=== PATIENT | male | born 1970 | race Caucasian/White ===

== ENCOUNTER 2017-01-12 12:04 | Emergency (ER) | payer OTHER | END 2017-01-12 12:54 | disposition home or self-care (01) | LOC: ER 12:04 | DX: M25.522 Pain in left elbow (principal); I10 Essential (primary) hypertension; Z86.14 Personal history of Methicillin resistant Staphylococcus aureus infection; F17.210 Nicotine dependence, cigarettes, uncomplicated; Z79.899 Other long term (current) drug therapy | CPT/HCPCS: 99070; 99282; 99283 ==

== ENCOUNTER 2017-02-09 07:36 | Observation (INO) | payer OTHER | END 2017-02-10 13:26 | disposition home or self-care (01) | LOC: ER 07:36 → MS 11:01 | PROVIDERS: ADMIT Family Medicine | DX: R07.2 Precordial pain (principal); I10 Essential (primary) hypertension; F17.210 Nicotine dependence, cigarettes, uncomplicated; E78.5 Hyperlipidemia, unspecified; Z79.899 Other long term (current) drug therapy; Z79.82 Long term (current) use of aspirin; M25.512 Pain in left shoulder ==